=== PATIENT | female | born 1950 | race Caucasian/White ===

== ENCOUNTER 2017-03-16 12:20 | Emergency (ER) | payer MEDICARE, OTHER | END 2017-03-16 13:32 | disposition home or self-care (01) | LOC: ER 12:20 | DX: M54.5 Low back pain (principal); I10 Essential (primary) hypertension; E78.5 Hyperlipidemia, unspecified; I25.10 Atherosclerotic heart disease of native coronary artery without angina pectoris; F17.210 Nicotine dependence, cigarettes, uncomplicated; Z90.710 Acquired absence of both cervix and uterus; Z98.51 Tubal ligation status; Z79.899 Other long term (current) drug therapy; X50.0XXA Overexertion from strenuous movement or load, initial encounter ==